=== PATIENT | female | born 1980 | race Caucasian/White ===

== ENCOUNTER → 2017-02-12 | Outpatient (CLI) | payer MEDICAID ==
[~2017-02-12] MED LIST: FERR325C PO; FOLI1TAB24 PO; LORA10TA72 PO; OMG1KC PO; PREN1TAB19 PO
--- NOTE | 2017-02-12 17:26 | Diagnostic Imaging Report ---
INDICATION: Undergoing anatomical evaluation. TECHNIQUE: Multiple real-time grayscale images were obtained over the gravid uterus. COMPARISON: None. FINDINGS: Single viable intrauterine currently in transverse position. There appears to be normal amount of amniotic fluid. The placenta is posterior without findings to suggest previa. anatomical evaluation is markedly limited on this examination. Essentially only the cord insertion site as well as bladder could be visualized. Biometrical measurements are as follows: Biparietal 4.53 cm, age 19 weeks 5 days. Head circumference 17.84 cm, age 20 weeks 3 days. Abdominal circumference 16.14 cm, age 21 weeks 2 days. Femur length 3.22 cm, age 20 weeks 1 days. Sonographic estimate age: 20 weeks 3 days. Sonographic estimated date of delivery: 06-29-17. Estimated Weight: 365 gm (+/- 53 gm). LMP percentile: 85%. heart rate: 149 beats per minute. number: 1 of 1. IMPRESSION: 1. Single viable intrauterine currently in a transverse position. Sonographic estimated age 20 weeks 3 days for an estimated date of delivery 06/29/2017. 2. anatomical evaluation cannot be well performed on this examination. Dictated by: Dictated on workstation # [id number]
== END ==
LOC: RAD 10:08
PROVIDERS: ATTEND Obstetrics & Gynecology
DX: Z36 Encounter for antenatal screening of mother (principal); O99.212 Obesity complicating pregnancy, second trimester; Z3A.20 20 weeks gestation of pregnancy; Z68.44 Body mass index [BMI] 60.0-69.9, adult
CPT/HCPCS: 76805

== ENCOUNTER → 2017-03-18 | Outpatient (CLI) | payer MEDICAID ==
--- NOTE | 2017-03-18 18:27 | Diagnostic Imaging Report ---
INDICATION: Incomplete formal anatomic survey on prior exam. TECHNIQUE: Multiple real-time grayscale images were obtained over the gravid uterus. COMPARISON: 02/12/2017 FINDINGS: Followup sonogram was performed for further assessment of anatomy. Intracranial structures remain poorly visualized. spine is grossly unremarkable. four-chamber heart and kidneys are also not well visualized. Two umbilical arteries are identified. Stomach and bladder are demonstrated. Cord insertion is not demonstrated, but was visualized on prior exam. Placenta is fundal to the right. Amniotic fluid appears to be grossly within normal limits. Amniotic fluid measurements were not obtained on today's exam. Cervix is closed and measures 5 cm in length. position is variable. heart rate is documented at 146 beats per minute. IMPRESSION: 1. Formal anatomic survey remains suboptimal as described above secondary to position and patient body habitus. Continued followup is recommended. 2. Single live intrauterine . Dictated by: Dictated on workstation # [id number]
== END ==
LOC: RAD 17:29
PROVIDERS: ATTEND Obstetrics & Gynecology
DX: Z36 Encounter for antenatal screening of mother (principal); Z3A.00 Weeks of gestation of pregnancy not specified
CPT/HCPCS: 76816

== ENCOUNTER → 2017-04-13 | Outpatient (CLI) | payer MEDICAID | LOC: LAB 07:59 | PROVIDERS: ATTEND Obstetrics & Gynecology | DX: O99.810 Abnormal glucose complicating pregnancy (principal); Z3A.00 Weeks of gestation of pregnancy not specified | CPT/HCPCS: 36415; 82951; 82952; 82962 ==

== ENCOUNTER 2017-06-11 21:05 | Outpatient (CLI) | payer MEDICAID ==
[~2017-06-11] VITALS: Ht 170.2 cm; Wt 199.1 kg
[2017-06-11 21:25] VITALS: BP 124/72
[2017-06-11 21:36] LABS: BILIRUBIN,URINE NEGATIVE (NEGATIVE); CLARITY,URINE CLEAR; COLOR,URINE YELLOW; GLUCOSE, URINE (UA) 4+ (NEGATIVE); KETONES,URINE NEGATIVE (NEGATIVE); LEUKOCYTE ESTERASE ,URINE 1+ (NEGATIVE); NITRITE,URINE NEGATIVE (NEGATIVE); PH,URINE 7 (5-9); PROTEIN,URINE NEGATIVE (NEGATIVE); UROBILINOGEN,URINE 1 MG/DL (NORMAL)
[2017-06-11] MEDS ORDERED: DOCU-143 PO (21:37)
[2017-06-11] MEDS ORDERED: FLUT9.9S16 NS (21:38)
[2017-06-11 21:49] LABS: BACTERIA,URINE MODERATE /HPF; URINE OTHER FEW SPERM /HPF
--- NOTE | 2017-06-13 11:46 | Physician Query-Final Dx ---
JOLENE OVERTON 06/13/17 1146: Clinic Account Progress/Dx Physician Query: Please give diagnosis Date of Service Jun 11, 2017 at 21:05 TEZ HOUGH DO 06/14/17 0806: Clinic Account Progress/Dx DIAGNOSIS: Diagnosis decreased movement JOLENE OVERTON Jun 13, 2017 11:46 TEZ HOUGH DO Jun 14, 2017 08:06
== END 2017-06-11 22:10 | disposition home or self-care (01) ==
LOC: WSo 21:05 → LDRP 21:05 → WSo 22:10
PROVIDERS: ATTEND Obstetrics & Gynecology
DX: O36.8130 Decreased fetal movements, third trimester, not applicable or unspecified (principal); Z3A.36 36 weeks gestation of pregnancy
CPT/HCPCS: 81000; 99213

== ENCOUNTER 2017-06-27 18:41 | Inpatient (IN) | payer MEDICAID ==
[~2017-06-27] VITALS: Ht 170.2 cm; Wt 204.1 kg
[~2017-06-27 18:41] MED LIST changes: +DOCU-143 PO; +FLUT9.9S16 NS
[2017-06-27 19:52] VITALS: BP 137/63
[2017-06-27] MEDS ORDERED: MISOPROSTOL 100 MCG (CYTOTEC) TAB PO ONE (20:15)
[2017-06-27] MEDS ORDERED: HYDROmorphone (DILAUDID) 2 MG/ML VIAL IVP PRN (20:15)
[2017-06-27] MEDS: LACTATED RINGERS 1,000 ML IV SCH (20:21)
[2017-06-27] MEDS: D5 LR IV SOLUTION 1,000 ML IV SCH (21:00)
[2017-06-27 21:45] LABS: BASOPHILS % (AUTO) 0 % (0-10); EOSINOPHILS # (AUTO) 0.1 10^3/uL (0.0-0.3); EOSINOPHILS % (AUTO) 1 % (0-10); HEMATOCRIT 30 % (35-52); HEMOGLOBIN 11.4 G/DL (11.5-16.0); LYMPHOCYTES # (AUTO) 3.1 X 10^3 (1.0-4.0); LYMPHOCYTES % (AUTO) 28 % (12-44); MEAN CORPUSCULAR HEMOGLOBIN 30 PG (25-34); MEAN CORPUSCULAR HGB CONC 38 G/DL (32-36); MEAN CORPUSCULAR VOLUME 78 FL (80-99); MEAN PLATELET VOLUME 8.2 FL (7.4-10.4); MONOCYTES # (AUTO) 0.6 X 10^3 (0.0-1.0); MONOCYTES % (AUTO) 6 % (0-12); NEUTROPHILS # (AUTO) 7.2 X 10^3 (1.8-7.8); NEUTROPHILS % (AUTO) 65 % (42-75); PLATELET COUNT 296 10^3/uL (130-400); RED BLOOD COUNT 3.85 10^6/uL (4.35-5.85); WHITE BLOOD COUNT 11.1 10^3/uL (4.3-11.0)
[2017-06-27] MEDS ORDERED: CATHETER FLUSH 10 ML SYR IV SCH (22:00)
[2017-06-27 23:10] VITALS: BP 142/68
[2017-06-28] VITALS (51 sets, daily range): BP systolic 111–153; BP diastolic 52–89
[2017-06-28] MEDS: MISOPROSTOL 100 MCG (CYTOTEC) TAB PO SCH ×2 (00:12→04:00)
[2017-06-28] MEDS: D5 LR IV SOLUTION 1,000 ML IV SCH ×2 (04:33→12:30)
[2017-06-28] MEDS ORDERED: OXYTOCIN/NORMAL SALINE 500 ML IV SCH (08:00)
[2017-06-28] MEDS ORDERED: SUFENTA 0.6MCG/ML BUPIVA 0.125 100 ML ONE ×3 (08:33→16:54)
[2017-06-28] MEDS ORDERED: BUPIVACAINE 0.25% 30 ML (SENSORCAINE) VIAL ONE (09:10)
[2017-06-28] MEDS ORDERED: fentaNYL INJECTION 100 MCG/2 ML AMP ONE ×2 (09:11→20:24)
--- NOTE | 2017-06-28 09:36 | History & Physical-OB ---
OB - Chief Complaint & HPI Date/Time Date of Admission: Date of Admission: Jun 27, 2017 at 6:41 pm Time Seen by Provider: 08:15 Chief Complaint/History OB-Reason for Admission/Chief: Induction of Labor Hx : 2 Hx Para: 2 Expected Date of Delivery: Jul 03, 2017 Gestational Age in Weeks: 39 Admission Nurse Assessment Rev: Yes History of Labs A pos Antibody- + anti Cristiana RI RPR NR HBsAg NR HIV NR GC neg GBS neg Allergies and Home Medications Allergies Coded Allergies: No Known Drug Allergies (Unverified , 10/27/15) Home Medications Docusate Sodium 100 Mg Capsule, 100 MG PO BID, (Reported) Ferrous Sulfate 325 Mg Capsule.er, 325 MG PO DAILY, (Reported) Fluticasone Furoate 9.9 Ml [place].susp, 9.9 ML NS DAILY, (Reported) Folic Acid 1 Mg Tablet, 1 MG PO DAILY, (Reported) Loratadine 10 Mg Tab.rapdis, 10 MG PO DAILY, (Reported) Vit/Iron Fumarate/FA 1 Each Tablet, 1 EACH PO DAILY, #1 (Reported) OB - History Hx of Present Care: Yes Ultrasounds: Normal mid trimester US Abnormal Ultrasound Findings: difficult to obtain adequate imaging due to patient's body hab Obstetrical Complications: None Medical Complications: Other (Morbid obesity >60BMI) Delivery History Adverse Rxn to Tranfusion: No Patient Past Medical History BMI>60, Hereditary peripheral neuropathy Social History/Family History HIV/AIDS: No Recent Infectious Disease Expo: No Sexually Transmitted Disease: No Alcohol Use: Denies Use Recreational Drug Use: No Immunizations Hepatitis A: Yes Hepatitis B: Yes Date of Influenza Vaccine: Apr 09, 2017 OB - Admission Exam Physical Exam Vitals: Vital Signs 06/27/17 06/27/17 06/28/17 19:52 20:36 03:17 Temp 97.6 Pulse 78 Resp 16 B/P (MAP) 139/69 (92) Pulse Ox 97 O2 Delivery Room Air HEENT: NCAT Heart: Rhythm Normal Lungs: Clear Abdomen: Gravid Extremities: Normal Cervical Dilatation: 4cm Effacement: 75% Station: -1 Membranes: Intact Heart Rate: 130's Accelerations: Accelerations Present Decelerations: No Decelerations Short Term Variability: Present Computer Scientist Variability: Average (6-25) Contractions on Admission: 6-10 Minutes Apart Intensity: Mild Sargent Scoring Tool (Modified) Dilation (cm): >5cm (3) Effacement (%): 51-79% (2) Descent/Station: -1,0 (2) Cervix Consistency: Soft (2) Cervix Position: Anterior (2) Add 1 point for: Each previous vaginal delivery (1) Sargent Score: 12 Labs Laboratory Tests Test 06/27/17 21:36 Range/Units White Blood Count 11.1 H 4.3-11.0 10^3/uL Red Blood Count 3.85 L 4.35-5.85 10^6/uL Hemoglobin 11.4 L 11.5-16.0 G/DL Hematocrit 30 L 35-52 % Mean Corpuscular Volume 78 L 80-99 FL Mean Corpuscular Hemoglobin 30 25-34 PG Mean Corpuscular Hemoglobin Concent 38 H 32-36 G/DL Red Cell Distribution Width 15.0 H 10.0-14.5 % Platelet Count 296 130-400 10^3/uL Mean Platelet Volume 8.2 7.4-10.4 FL Neutrophils (%) (Auto) 65 42-75 % Lymphocytes (%) (Auto) 28 12-44 % Monocytes (%) (Auto) 6 0-12 % Eosinophils (%) (Auto) 1 0-10 % Basophils (%) (Auto) 0 0-10 % Neutrophils # (Auto) 7.2 1.8-7.8 X 10^3 Lymphocytes # (Auto) 3.1 1.0-4.0 X 10^3 Monocytes # (Auto) 0.6 0.0-1.0 X 10^3 Eosinophils # (Auto) 0.1 0.0-0.3 10^3/uL Basophils # (Auto) 0.0 0.0-0.1 10^3/uL OB - Assessment/Plan/Diagnosis Assessment Assessment: induction of labor Plan Plan: Induction Induction Method: AROM (and pitocin) Discharge Diagnosis Diagnosis: 36 yo @ 39 weeks BMI >60 GBS neg JILLIAN CAMPBELL DO Jun 28, 2017 9:36 am
[2017-06-28] MEDS ORDERED: METOCLOPRAMIDE INJ 10 MG/2 ML (REGLAN) ONE (19:34)
[2017-06-28] MEDS ORDERED: CITRIC ACID/SOB CIT (BICITRA) 30 ML UDC ONE (19:34)
[2017-06-28] MEDS ORDERED: ceFAZolin 2 GM/50 ML NS 50 ML ONE (19:34)
[2017-06-28] MEDS ORDERED: FAMOTIDINE 20MG/2ML IV (PEPCID) ONE (19:34)
[2017-06-28] MEDS: LACTATED RINGERS 1,000 ML IV SCH (19:40)
[2017-06-28] MEDS ORDERED: HYDROmorphone (DILAUDID) 2 MG/ML VIAL IVP PRN (19:45)
[2017-06-28] MEDS ORDERED: ONDANSETRON 4 MG/2 ML (SDV) Z0FRAN IVP PRN ×2 (19:45→21:30)
[2017-06-28] MEDS ORDERED: MEASLES,MUMPS,RUBELLA 1 EA INJ SC SCH (19:45)
[2017-06-28] MEDS ORDERED: TETANUS,DIPTH,PERTUSS P/F (BOOSTRIX) 0.5 ML VIAL IM SCH (19:45)
--- NOTE | 2017-06-28 19:47 | Progress Note-Standard ---
Standard Progress Note Progress Notes/Assess & Plan Date Seen by Provider: Jun 28, 2017 Time Seen by Provider: 19:35 Progress/Assessment & Plan This patient was admitted last evening for induction of labor at 39 weeks. she was brought in and started on Cytotec orally overnight and then AROM was performed this morning with Pitocin augmentation. An IUPC and scalp electrode was placed at time of rupture and inadequate labor contraction pattern was achieved after titrating the Pitocin up to 20 milliunits a minute. She progressed to complete and 0 station, and was encouraged to start pushing however with each push there was deep variable decelerations down into the 70s. After approximately 30-45 minutes of pushing there was no progress of the head, no molding was appreciated on evaluation of the suture lines and the position was ROP. due to suspected cephalopelvic disproportion, this was partially likely due to patient's severely elevated BMI as well as position, also intolerance of second stage of labor I discussed with the patient proceeding with primary . An increased risk due to the patient' s weight was discussed as well as typical risks of delivery including bleeding, infection, damaging surrounding structures unintentionally, possible need for blood transfusion, risk from anesthesia, risks of the infant. After that was discussed with the patient and her agreed to proceed consent was obtained and the patient was taken to the operating room. JILLIAN CAMPBELL DO Jun 28, 2017 19:47
--- NOTE | 2017-06-28 19:53 | Progress Note-Post Operative ---
Post-Operative Progess Note Surgeon (s)/Environmental Services Floor Tech (s) Surgeon JILLIAN CAMPBELL DO Environmental Services Floor Tech: Gloria Pre-Operative Diagnosis 39 week IUP, CPD, intolerance of 2nd stage, BMI 70.5 Post-Operative Diagnosis same Procedure & Operative Findings Date of Procedure 06/28/17 Procedure Performed/Findings once in the operating room epidural analgesia sign of adequate she's placed in supine position with leftward tilt prepped and draped in normal sterile fashion. a Pfannenstiel skin incision is made with a knife and carried down to the underlying fascia using Bovie cautery. The fascial incision is extended laterally using Bovie cautery, the superior aspect of the fascial incision is then grasped with Enrique clamps, tented upward, and dissected off the underlying rectus muscles. The inferior aspect of the fascial incision is then grasped with Adams clamps and tented upward and dissected off the rectus muscles. The rectus muscles were then dissected down the midline using Metzenbaum scissors and blunt traction. Peritoneum is identified and entered bluntly and extended using blunt traction. An extra-large Kevan ring retractor is placed within the peritoneal incision which offers excellent lateral sidewall retraction. The lower uterine segment is identified, a shallow incision is made to the vascular uterine peritoneum and a low transverse fashion and a bladder flap is developed using blunt dissection. The myotomy is continued until membranes were visualized at which point the uterine incision is extended laterally using banded scissors. The is found in vertex presentation with gentle fundal pressure the infant's head is elevated up to the incision and delivered through the incision. The nares and oropharynx are bulb suctioned, the anterior posterior shoulders were then delivered and the infant is then brought onto the operative field with a cortisol clamped and cut is handed off to waiting nurses in attendance. Cord blood is collected. Three-vessel cord with intact placenta is delivered spontaneously thereafter, IV Pitocin is initiated to facilitate uterine contractions. The uterus becomes firm and bimanual massage the endometrium endometrial cavity is cleared of all clots and debris. The uterus is then exteriorized, I then closed the uterine incision using 0 Vicryl suture running locked fashion, a second layer of imbricating 0 Monocryl was placed excellent hemostasis is noted after doing this. The uterus is in place back within the pelvis, with the pelvis is copious E irrigated using normal saline. Once again no active bleeding is noted from any my dissection planes. I placed Interceed anti-adhesive over my low-transverse incision and proceeded with closing the peritoneum. The peritoneum is reapproximated using 2-0 Vicryl suture in a running fashion. The rectus muscle reapproximated using 3-0 Vicryl suture in an interrupted fashion. The fascia approximated using 0 Vicryl suture running fashion. The subcutaneous tissue was reapproximated using 0 plain in an interrupted subcutaneous stitch and the skin reapproximated using kaylie. The patient tolerated the procedure well and was taken to recovery area in stable condition. Lap and sponge count is correct at end of the procedure instrument counts correct as well. 2 g of Ancef were given preoperatively for infection prophylaxis. Anesthesia Type Epidural bolused Estimated Blood Loss Estimated blood loss (mL): 500 Specimens/Packing Specimens Removed placenta KOBEJILLIAN PIERCE Jun 28, 2017 19:53
--- NOTE | 2017-06-28 19:55 | Discharge Inst-Women's Service ---
Discharge Inst-Women's Serv Depart Medication/Instructions New, Converted or Re-Newed RX: RX on Chart Consults/Follow Up Additional Follow Up: Yes Orders/Referrals Dr. Lou in 7-10 days and in 6 weeks Activity Activity: Activity as Tolerated Driving Instructions: No Driving for 1 Week NO SMOKING: NO SMOKING Nothing Inside Vagina: No Douching, No [place], No Tampons Diet Discharge Diet: No Restrictions Symptoms to Report to : Bleeding Excessive, Pain Increased, Fever Over 101 Degrees F, Vaginal Bleeding Increase, Questions/Concerns For Any Problems or Questions: Contact Your Physician Skin/Wound Care Infection Signs and Symptoms: Increased Redness, Foul Odor of Wound, Increased Drainage, Skin Itchy or Has a Rash, Increased Swelling, Temperature Above 101 F Operative Area Clean and Dry: Keep Incision Clean/Dry Stitches/Josselin/Dermabond: Dermabond, Care of Stitches Bathing Instructions: JILLIAN Mcdonald DO Jun 28, 2017 19:55
[2017-06-28] MEDS ORDERED: DOCU100C37 PO (19:58)
[2017-06-28] MEDS ORDERED: ACHD5005 PO (19:58)
[2017-06-28] MEDS ORDERED: IBUP-1773 PO (19:58)
[2017-06-28] MEDS ORDERED: OXYTOCIN/NORMAL SALINE 500 ML IV ONE (20:28)
[2017-06-28] MEDS ORDERED: ONDANSETRON 4 MG/2 ML (SDV) Z0FRAN ONE (20:53)
[2017-06-28] MEDS ORDERED: PHENYLEPHRINE 100 MCG/ML 10 ML (ANESTHESIA) SYR ONE (20:53)
[2017-06-28] MEDS: DOCUSATE SODIUM 100 MG (COLACE) CAP PO SCH (21:00)
[2017-06-28] MEDS ORDERED: KETOROLAC 30 MG/ML VIAL ONE (21:21)
[2017-06-28] MEDS: KETOROLAC 30 MG/ML VIAL IVP SCH (21:22)
[2017-06-28] MEDS ORDERED: METOCLOPRAMIDE INJ 10 MG/2 ML (REGLAN) IV PRN (21:30)
[2017-06-28] MEDS ORDERED: morphine INJ 10 MG/ML 1ML (SYR OR VIAL) IVP PRN (21:30)
[2017-06-28] MEDS ORDERED: diphenhydrAMINE 50 MG/ML INJ (BENADRYL) IV PRN (21:30)
[2017-06-28] MEDS ORDERED: MEPERIDINE (DEMEROL) INJ 50 MG/ML IVP PRN (21:30)
[2017-06-28] MEDS ORDERED: NALOXONE 0.4 MG/ML 1 ML (NARCAN) VIAL IV PRN ×2 (21:30)
[2017-06-28] MEDS ORDERED: ONDANSETRON 4 MG/2 ML (SDV) Z0FRAN IV PRN (21:30)
[2017-06-28] MEDS: OXYTOCIN/NORMAL SALINE 500 ML IV SCH ×3 (22:00→23:28)
[2017-06-28] MEDS: CATHETER FLUSH 10 ML SYR IV SCH (23:24)
--- OUTSIDE RECORDS SUMMARY | 2017-06-28 23:31 | XMS REPORT ---
Author Author LEONARD GUZMAN [facility] Address [address] [place], [place] [id number] Care Team Providers Care Data Communications Technician Name Role Phone LEONARD GUZMAN PCP Unavailable Allergies and Adverse Reactions Name Reaction Notes NO KNOWN DRUG ALLERGIES Plan of Treatment Not available. Medications Name Start Date Expiration Date SIG Comments Keflex 500 mg oral capsule 01/13/2010 01/23/2010 take 1 capsule (500 mg) by oral route 3 times a day for 10 days cephalexin 500 mg oral capsule 01/04/2016 01/14/2016 take 1 capsule by oral route 4 times a day for 10 days Problem List Not available. Vital Signs Date Time BP-Sys(mm[Hg] BP-Malini(mm[Hg]) HR(bpm) RR(rpm) Temp WT HT HC BMI BSA BMI Percentile O2 Sat(%) 01/04/2016 9:12:00 AM 138 mmHg 98 mmHg 75 bpm 20 rpm 97 F 408 lbs 67 in 63.90 kg/m2 2.96 m2 97 % 06/26/2015 1:54:00 PM 136 mmHg 60 mmHg 91 bpm 24 rpm 98.8 F 409 lbs 98 % 10/12/2009 1:52:00 PM 112 mmHg 80 mmHg 80 bpm 423.999 lbs Social History Not available. History of Procedures Date Ordered Description Order Status 10/12/2009 12:00 AM THER/PROPH/DIAG INJ SC/IM Reviewed 10/12/2009 12:00 AM Decadron Inj.8mg-([facility]) [facility] #[id number] Reviewed 10/12/2009 12:00 AM Depo-Medrol 80 Mg Im/[facility] [id number] Reviewed 10/12/2009 12:00 AM Rocephin, Per 250MG - 1 Gram Vial Reviewed Results Summary Not available. History Of Immunizations Not available. History of Past Illness Name Date of Onset Comments Tonsillitis, Acute Oct 12 2009 1:54PM Upper respiratory infection Jun 26 2015 1:56PM Moderate Acute Infected tooth Worsening Jan 04 2016 9:12AM Payers Insurance Name Company Name Plan Name Plan Number Policy Number Policy Group Number Start Date [employer] - [place] [employer] [place] [id number] N/A History of Encounters Visit Date Visit Type Provider 01/04/2016 Office visit LEONARD DOUGLAS 06/26/2015 Office visit Fara Crowley APRN 10/12/2009 Office visit Leonard Guzman PA-C
--- OUTSIDE RECORDS SUMMARY | 2017-06-28 23:31 | XMS REPORT ---
Author Author Fara Crowley [facility] Address [address] [place], [place] [id number] Care Team Providers Care Cooker Pie Filling Name Role Phone Fara Crowley PCP Unavailable Allergies and Adverse Reactions Name Reaction Notes NO KNOWN DRUG ALLERGIES Plan of Treatment Not available. Medications Name Start Date Expiration Date SIG Comments Keflex 500 mg oral capsule 01/13/2010 01/23/2010 take 1 capsule (500 mg) by oral route 3 times a day for 10 days Problem List Not available. Vital Signs Date Time BP-Sys(mm[Hg] BP-Malini(mm[Hg]) HR(bpm) RR(rpm) Temp WT HT HC BMI BSA BMI Percentile O2 Sat(%) 06/26/2015 1:54:00 PM 136 mmHg 60 mmHg 91 bpm 24 rpm 98.8 F 409 lbs 98 % 10/12/2009 1:52:00 PM 112 mmHg 80 mmHg 80 bpm 423.999 lbs Social History Not available. History of Procedures Date Ordered Description Order Status 10/12/2009 12:00 AM THER/PROPH/DIAG INJ SC/IM Reviewed 10/12/2009 12:00 AM Decadron Inj.8mg-([facility]) [facility] #[id number] Reviewed 10/12/2009 12:00 AM Depo-Medrol 80 Mg Im/[facility] [id number] Reviewed 10/12/2009 12:00 AM Rocephin, Per 250MG - 1 Gram Vial Reviewed Results Summary Not available. History Of Immunizations Not available. History of Past Illness Name Date of Onset Comments Tonsillitis, Acute Oct 12 2009 1:54PM Upper respiratory infection Jun 26 2015 1:56PM Payers Not available. History of Encounters Visit Date Visit Type Provider 06/26/2015 Office visit Fara Crowley [employer] 10/12/2009 Office visit Leonard Cuevas PA-C
[2017-06-29] MEDS: HYDROcodone/APAP 5 MG/325 MG (LORTAB) TAB PO PRN ×2 (00:23→08:06)
[2017-06-29 03:15] VITALS: BP 127/75
[2017-06-29] MEDS: KETOROLAC 30 MG/ML VIAL IVP SCH ×4 (03:29→21:50)
[2017-06-29] MEDS: D5 LR IV SOLUTION 1,000 ML IV SCH ×2 (04:00→11:58)
[2017-06-29] MEDS ORDERED: ceFAZolin 2 GM/50 ML NS 50 ML IV ONE (05:00)
[2017-06-29] MEDS: CATHETER FLUSH 10 ML SYR IV SCH ×2 (06:00→14:00)
[2017-06-29 06:15] VITALS: BP 135/75
[2017-06-29 08:00] VITALS: BP 134/76
--- NOTE | 2017-06-29 08:44 | Postpartum Progress Note ---
Post Op Post-operative Day #1 s/p PLTCS Subjective: Patient is without complaints. Ambulating, voiding after hinton removed. Tolerating a regular diet without nausea or vomiting. Normal lochia. Pain is well controlled with oral pain medications. Passing flatus. breast feeding. Decreased urine output. Will continue to monitor. Complains of pain. Will inc dose of lortab. Lovenox for DVT prophylaxis and due to BMI 70. Objective: Vital Sign - Last 12Hours 06/28/17 06/29/17 06/29/17 06/29/17 23:00 03:15 06:15 08:00 Temp 98.2 98.8 97.3 98.0 Pulse 95 74 87 88 Resp 20 20 18 18 B/P (MAP) 144/89 (107) 127/75 (92) 135/75 (95) 134/76 (95) Pulse Ox 97 98 96 O2 Delivery Room Air Room Air Room Air Room Air Intake and Output 06/29/17 00:00 Intake Total 2890 ml Output Total 525 ml Balance 2365 ml Physical Exam: General - Alert and oriented, no apparent distress Abdomen - Soft, appropriately tender to palpation, non-distended, fundus firm at umbilicus Incision - clean, dry and intact; no erythema or induration, no drainage Extremities - 1 + edema, negative Evaristo's bilaterally Assessment: 1. post-operative day # 1, status post PLTCS. Recovering well, hemodynamically stable Am labs pending Plan: Routine post-operative care. Encourage breast feeding. Encourage ambulation. VTE prophylaxis: SCDs, Lovenox. Ferrous sulfate supplementation. Plan for discharge tomorrow or Saturday Vitals - Labs Vital Signs - I&O Vital Signs Date Time Temp Pulse Resp B/P (MAP) Pulse Ox O2 Delivery O2 Flow Rate FiO2 06/29/17 08:00 98.0 88 18 134/76 (95) 96 Room Air 06/29/17 06:15 97.3 87 18 135/75 (95) Room Air 06/29/17 03:15 98.8 74 20 127/75 (92) 98 Room Air 06/28/17 23:00 98.2 95 20 144/89 (107) 97 Room Air 06/28/17 20:30 106 20 112/58 (76) Room Air 06/28/17 20:15 97 20 111/52 (71) Room Air 06/28/17 20:00 106 20 114/57 (76) Room Air 06/28/17 19:45 97.4 116 20 124/73 (90) Room Air 06/28/17 19:30 115 20 122/57 (78) Room Air 06/28/17 19:00 89 20 131/73 (92) Room Air 06/28/17 18:45 84 18 141/77 (98) Room Air 06/28/17 18:30 90 18 114/64 (81) Room Air 06/28/17 18:15 Room Air 06/28/17 18:00 76 20 137/66 (89) Room Air 06/28/17 17:45 72 20 138/76 (96) Room Air 06/28/17 17:30 81 20 127/71 (89) Room Air 06/28/17 17:15 75 20 122/62 (82) Room Air 06/28/17 17:00 77 20 120/62 (81) Room Air 06/28/17 16:45 78 20 123/66 (85) 97 Room Air 06/28/17 16:30 81 20 118/57 (77) 97 Room Air 06/28/17 15:45 97.1 78 20 124/64 (84) 98 Room Air 06/28/17 15:30 80 20 136/78 (97) 98 Room Air 06/28/17 15:15 80 20 117/59 (78) 98 Room Air 06/28/17 15:00 78 18 124/59 (80) 98 Room Air 06/28/17 14:45 75 18 120/56 (77) 97 Room Air 06/28/17 14:30 81 20 127/71 (89) 99 Room Air 06/28/17 14:15 78 20 132/68 (89) 97 Room Air 06/28/17 14:00 74 18 111/58 (75) 97 Room Air 06/28/17 13:45 80 18 130/73 (92) 97 Room Air 06/28/17 13:30 83 18 130/58 (82) 97 Room Air 06/28/17 13:15 75 18 134/61 (85) 97 Room Air 06/28/17 13:00 97 18 123/59 (80) 97 Room Air 06/28/17 12:45 83 20 122/61 (81) 98 Room Air 06/28/17 12:30 80 20 124/61 (82) 98 Room Air 06/28/17 12:15 85 20 124/64 (84) 97 Room Air 06/28/17 12:00 96.8 80 18 132/60 (84) 98 Room Air 06/28/17 11:45 82 18 153/63 (93) 95 Room Air 06/28/17 11:15 80 18 130/59 (82) 97 Room Air 06/28/17 11:00 97 20 136/63 (87) 98 Room Air 06/28/17 10:40 84 20 124/59 (80) 96 Room Air 06/28/17 10:30 89 18 126/60 (82) 96 Room Air 06/28/17 10:15 81 18 121/60 (80) 95 Room Air 06/28/17 10:00 91 16 137/64 (88) 98 Room Air 06/28/17 09:55 90 16 130/63 (85) 97 Room Air 06/28/17 09:50 94 18 130/61 (84) 97 Room Air 06/28/17 09:45 82 18 122/60 (80) 97 Room Air 06/28/17 09:40 94 20 127/71 (89) 97 Room Air 06/28/17 09:35 86 20 124/58 (80) 98 Room Air 06/28/17 09:30 88 20 145/75 (98) 98 Room Air 06/28/17 09:27 91 20 152/83 (106) 98 Room Air 06/28/17 09:10 84 20 144/67 (92) 06/28/17 09:00 82 20 148/70 (96) 06/28/17 08:45 82 20 133/71 (91) I & O 06/29/17 07:00 Intake Total 5640 ml Output Total 775 ml Balance 4865 ml TEZ HOUGH DO Jun 29, 2017 08:44
[2017-06-29 09:08] LABS: BASOPHILS % (AUTO) 0 % (0-10); EOSINOPHILS # (AUTO) 0.1 10^3/uL (0.0-0.3); EOSINOPHILS % (AUTO) 1 % (0-10); HEMATOCRIT 31 % (35-52); HEMOGLOBIN 10.8 G/DL (11.5-16.0); LYMPHOCYTES % (AUTO) 22 % (12-44); MEAN CORPUSCULAR HEMOGLOBIN 30 PG (25-34); MEAN CORPUSCULAR HGB CONC 35 G/DL (32-36); MEAN CORPUSCULAR VOLUME 84 FL (80-99); MONOCYTES # (AUTO) 0.8 X 10^3 (0.0-1.0); MONOCYTES % (AUTO) 6 % (0-12); NEUTROPHILS # (AUTO) 9.8 X 10^3 (1.8-7.8); NEUTROPHILS % (AUTO) 72 % (42-75); PLATELET COUNT 274 10^3/uL (130-400); RED BLOOD COUNT 3.66 10^6/uL (4.35-5.85); RED CELL DISTRIBUTION WIDTH 15.4 % (10.0-14.5); WHITE BLOOD COUNT 13.6 10^3/uL (4.3-11.0)
[2017-06-29] MEDS: DOCUSATE SODIUM 100 MG (COLACE) CAP PO SCH ×2 (09:33→19:59)
[2017-06-29] MEDS: ENOXAPARIN 80 MG/0.8 ML (LOVENOX) SYR SC SCH (09:34)
--- NOTE | 2017-06-29 12:52 | Anesthesia-Regional Post-Op ---
Regional Patient Condition Mental Status: Alert, Oriented x3 Circulation: Same as Pre-Op Headache: Absent Sensation: Full Recovery Motor Block: Absent Post Op Complications Complications None Follow Up Care/Instructions Patient Instructions None needed. Anesthesia/Patient Condition Patient is doing well, no complaints, stable vital signs, no apparent adverse anesthesia problems. No complications reported per nursing. ANÍBAL RIOS CRNA Jun 29, 2017 12:52
[2017-06-29 13:20] VITALS: BP 111/63
[2017-06-29] MEDS: HYDROcodone/APAP 7.5 MG/325 MG (LORTAB, LORCET PLUS) TABLET PO PRN ×2 (13:22→19:59)
[2017-06-29] MEDS ORDERED: IBUPROFEN 600 MG (MOTRIN) TAB PO ONE (13:29)
[2017-06-29] MEDS: IBUPROFEN 600 MG (MOTRIN) TAB PO SCH ×2 (15:44→21:50)
[2017-06-29 16:45] VITALS: BP 139/85
[2017-06-29 20:53] VITALS: BP 120/66
[2017-06-30 03:00] VITALS: BP 127/70
[2017-06-30] MEDS: IBUPROFEN 600 MG (MOTRIN) TAB PO SCH ×3 (03:20→15:25)
[2017-06-30] MEDS: HYDROcodone/APAP 7.5 MG/325 MG (LORTAB, LORCET PLUS) TABLET PO PRN ×2 (03:20→12:25)
[2017-06-30 08:00] VITALS: BP 130/65
[2017-06-30] MEDS: DOCUSATE SODIUM 100 MG (COLACE) CAP PO SCH (08:48)
[2017-06-30] MEDS: ENOXAPARIN 80 MG/0.8 ML (LOVENOX) SYR SC SCH (08:49)
--- NOTE | 2017-06-30 10:40 | Postpartum Progress Note ---
Post Op Post-operative Day #2 s/p PLTCS Subjective: Patient is without complaints. Ambulating, voiding after hinton removed. Tolerating a regular diet without nausea or vomiting. Normal lochia. Pain is well controlled with oral pain medications. Passing flatus. breast feeding. Objective: Vital Sign - Last 12Hours 06/30/17 06/30/17 03:00 08:00 Temp 97.0 98.1 Pulse 97 92 Resp 18 18 B/P (MAP) 127/70 (89) 130/65 (86) Pulse Ox 96 97 O2 Delivery Room Air Room Air Intake and Output 06/30/17 00:00 Intake Total 2060 ml Output Total 675 ml Balance 1385 ml Physical Exam: General - Alert and oriented, no apparent distress Abdomen - Soft, appropriately tender to palpation, non-distended, fundus firm at umbilicus Incision - clean, dry and intact; no erythema or induration, no drainage Extremities - no edema, negative Evaristo's bilaterally Assessment: 1. post-operative day # 2, status post PLTCS. Recovering well, hemodynamically stable Plan: Routine post-operative care. Encourage breast feeding. Encourage ambulation. VTE prophylaxis: SCDs. Ferrous sulfate supplementation. Plan for discharge today or tomorrow Vitals - Labs Vital Signs - I&O Vital Signs Date Time Temp Pulse Resp B/P (MAP) Pulse Ox O2 Delivery O2 Flow Rate FiO2 06/30/17 08:00 98.1 92 18 130/65 (86) 97 Room Air 06/30/17 03:00 97.0 97 18 127/70 (89) 96 Room Air 06/29/17 20:53 97.6 96 18 120/66 (84) 98 Room Air 06/29/17 16:45 97.8 93 18 139/85 (103) 98 Room Air 06/29/17 13:20 99.0 94 18 111/63 (79) 97 Room Air I & O 06/30/17 07:00 Intake Total 4110 ml Output Total 1475 ml Balance 2635 ml TEZ HOUGH DO Jun 30, 2017 10:40
[2017-06-30 12:15] VITALS: BP 136/76
[2017-06-30 15:30] VITALS: BP 136/76
== END 2017-06-30 15:30 | disposition home or self-care (01) | DRG 765 ==
LOC: LDRP 18:41
PROVIDERS: ADMIT Obstetrics & Gynecology; ATTEND Obstetrics & Gynecology
PROC: 3E0DXGC Introduction of Other Therapeutic Substance into Mouth and Pharynx, External Approach (ICD-10-PCS; 2017-06-27)
PROC: 10D00Z1 Extraction of Products of Conception, Low, Open Approach (ICD-10-PCS; principal; 2017-06-28 20:33)
DX: O99.214 Obesity complicating childbirth (principal); E66.01 Morbid (severe) obesity due to excess calories; Z68.45 Body mass index [BMI] 70 or greater, adult; O76 Abnormality in fetal heart rate and rhythm complicating labor and delivery; O33.9 Maternal care for disproportion, unspecified; Z37.0 Single live birth; Z3A.39 39 weeks gestation of pregnancy; Z23 Encounter for immunization
CPT/HCPCS: 36415; 85025; 86850; 86900; 86901; 90707; 90715; 94664